=== PATIENT | male | born 1955 | race Caucasian/White ===

== ENCOUNTER → 2020-08-03 12:13 | Outpatient (ROUT) | payer MEDICARE, OTHER, SELFPAY ==
[2020-08-03 12:20] LABS: Hematocrit 30.3 % (41-53); Hemoglobin 10.2 g/dL (13.5-17.5); Mean Corpuscular HGB Conc 33.8 % (30-36); Mean Corpuscular Hemoglobin 31.1 PG (26-34); Platelet Count 246 X10^3/uL (150-400); Red Blood Cell Count 3.29 X10^6/uL (4.5-5.9); Red Cell Distribution Width 15.2 % (11.6-14.8); White Blood Cell Count 9.3 X10^3/uL (4.5-11.0)
[2020-08-03 12:29] LABS: Add Manual Diff / Slide Review YES
[2020-08-03 12:55] LABS: Alanine Aminotransferase 30 IU/L (<50); Albumin 3.8 g/dL (3.5-5.0); Albumin Globulin Ratio 1.1 (1.0-2.8); Alkaline Phosphatase 98 U/L (38-126); Aspartate Aminotransferase 23 IU/L (17-59); BUN Creatinine Ratio 41.1 (6-22); Bilirubin Total 0.3 mg/dL (0.2-1.3); Blood Urea Nitrogen 51 mg/dL (9-20); Calcium 9.9 mg/dL (8.4-10.2); Carbon Dioxide 28 mmol/L (22-32); Chloride 100 mmol/L (98-107); Estimated Glomerular Filt Rate 58.3 mL/min (>60); Globulin 3.5 g/dL (1.7-4.1); Glucose 91 mg/dL (80-110); HEMOLYSIS < 15 (0-50); Magnesium 1.8 mg/dL (1.6-2.3); Phosphorous 4.9 mg/dL (2.3-3.7); Sodium 137 mmol/L (137-145); Total Protein 7.3 g/dL (6.3-8.2)
[2020-08-03 12:57] LABS: Neutrophils Absolute Manual 6696 /uL (3000-5900); RBC Morphology Normal Morphology; Total Cells Counted 100
== END ==
PROVIDERS: Visit Provider Surgery
DX: K55.019 Acute (reversible) ischemia of small intestine, extent unspecified (principal)
CPT/HCPCS: 80053; 83735; 84100; 85025

== ENCOUNTER → 2020-12-02 11:58 | Outpatient (ROUT) | payer MEDICARE, OTHER, SELFPAY ==
[2020-12-02 12:10] LABS: Add Manual Diff / Slide Review NO; Basophils Absolute Auto 0 /uL (0-100); Basophils Percent Auto 0.6 % (0-2); Eosinophils Absolute Auto 200 /uL (0-450); Eosinophils Percent Auto 3.1 % (2-4); Hematocrit 34.6 % (41-53); Hemoglobin 11.3 g/dL (13.5-17.5); Lymphocytes Absolute Auto 1500 /uL (1100-4500); Lymphocytes Percent Auto 25.4 % (25-40); Mean Corpuscular HGB Conc 32.8 % (30-36); Mean Corpuscular Hemoglobin 28.4 PG (26-34); Mean Corpuscular Volume 86.7 fL (80-100); Monocytes Absolute Auto 700 /uL (0-900); Monocytes Percent Auto 11.3 % (3-14); Neutrophils Absolute Auto 3500 /uL (1500-7000); Neutrophils Percent Auto 59.6 % (50-75); Platelet Count 261 X10^3/uL (150-400); Red Blood Cell Count 3.99 X10^6/uL (4.5-5.9); Red Cell Distribution Width 14.8 % (11.6-14.8); White Blood Cell Count 5.9 X10^3/uL (4.5-11.0)
[2020-12-02 12:30] LABS: Alanine Aminotransferase 18 IU/L (<50); Albumin 3.2 g/dL (3.5-5.0); Albumin Globulin Ratio 1.2 (1.0-2.8); Alkaline Phosphatase 101 U/L (38-126); Aspartate Aminotransferase 21 IU/L (17-59); BUN Creatinine Ratio 40.8 (6-22); Bilirubin Total 0.3 mg/dL (0.2-1.3); Blood Urea Nitrogen 42 mg/dL (9-20); C-Reactive Protein Quant 1.1 mg/dL (<1.0); Calcium 8.9 mg/dL (8.4-10.2); Carbon Dioxide 28 mmol/L (22-32); Chloride 104 mmol/L (98-107); Estimated Glomerular Filt Rate > 60.0 mL/min (>60); Globulin 2.6 g/dL (1.7-4.1); Glucose 114 mg/dL (80-110); HEMOLYSIS < 15 (0-50); Magnesium 1.8 mg/dL (1.6-2.3); Phosphorous 3.6 mg/dL (2.3-3.7); Potassium 4.3 mmol/L (3.4-5.1); Sodium 136 mmol/L (137-145); Total Protein 5.8 g/dL (6.3-8.2); Triglycerides 99 mg/dL (35-150)
[2020-12-02 12:35] LABS: Prealbumin 17.9 mg/dL (17.6-36.0)
== END ==
PROVIDERS: Visit Provider Surgery
DX: K63.2 Fistula of intestine (principal); K55.019 Acute (reversible) ischemia of small intestine, extent unspecified
CPT/HCPCS: 80053; 83735; 84100; 84134; 84478; 85025; 86140

== ENCOUNTER → 2021-02-12 10:03 | Outpatient (CLI) | payer MEDICARE, OTHER, SELFPAY ==
--- NOTE | 2021-02-12 10:07 | DI.RAD.S_ITS ---
PROCEDURE: FL UPPER GI SMALL BOWEL INDICATIONS: FISTULA OF INTESTINE COMPARISON: None. FINDINGS: KUB: Preprocedural picture engraver film shows a normal bowel gas pattern. No suspicious abdominal calcifications. Visualized solid organ contours appear normal in size. No suspicious bony abnormalities. Esophagus: Air-contrast views demonstrate a normal mucosal pattern. On single-contrast views, there is normal peristalsis. No fixed strictures, extrinsic mass effects, or diverticula. No hiatal hernias or elicited gastroesophageal reflux. There is normal transit of a calibrated barium tablet through the esophagus. Stomach: The gastric lumen is normally distensible, and has normal rugal fold thickness. No mucosal masses or ulcers. The pylorus and duodenal bulb have a normal morphology. Small bowel: Duodenal folds appear normal in thickness. There is rapid transit time of barium through the small intestine possibly related to shortened length small bowel following surgical resection. Markedly dilated loops of small bowel noted in left abdomen with loops of small bowel measuring up to 10.6 centimeters. There is transition zone to normal caliber small bowel in the lower pelvis. The transition point is not directly visualized due to multiple superimposed dilated loops of small bowel, however the transition zone is approximately in the lower left paramedian pelvis. No intraluminal masses, or extrinsic mass effects. The terminal ileum is not identified and may be surgically absent. Reported enterocutaneous fistula is not definitely visualized. IMPRESSION: 1. Small bowel obstruction with loops of small bowel dilated up to 10.6 centimeters. Transit of contrast material from small bowel into the colon indicating partial obstruction. 2. Rapid transit of contrast material through small bowel possibly related to surgically shortened small-bowel length. 3. Transition zone to normal small bowel caliber localizes to the inferior left paramedian pelvis. Dictated by: Kiya Stevens MD, PhD on 02/12/2021 at 14:11 Approved by: Kiya Stevens MD, PhD on 02/12/2021 at 14:17
== END ==
PROVIDERS: Referring Provider Surgery; Visit Provider Surgery
DX: K63.2 Fistula of intestine (principal)
CPT/HCPCS: 74240; 74248

== ENCOUNTER → 2021-06-05 09:22 | Outpatient (CLI) | payer MEDICARE, OTHER, SELFPAY ==
[2021-06-05 12:29] LABS: COVID19 - ADMIT (NP swab/PCR) Negative (Negative)
== END ==
PROVIDERS: Visit Provider Physician Assistant
DX: Z01.812 Encounter for preprocedural laboratory examination (principal); Z20.822 Contact with and (suspected) exposure to COVID-19
CPT/HCPCS: C9803; U0003

== ENCOUNTER → 2021-07-07 11:40 | Outpatient (CLI) | payer MEDICARE, OTHER, SELFPAY ==
[2021-07-07 14:20] LABS: COVID-19 CEPHEID PCR (VTM/NP) Negative (Negative)
== END ==
PROVIDERS: Visit Provider Nurse Practitioner
DX: Z20.822 Contact with and (suspected) exposure to COVID-19 (principal)
CPT/HCPCS: C9803; U0003

== ENCOUNTER → 2022-02-21 10:01 | Outpatient (CLI) | payer MEDICARE, OTHER, SELFPAY ==
[2022-02-21 12:32] LABS: COVID-19 CEPHEID PCR (VTM/NP) Negative (Negative)
== END ==
PROVIDERS: Visit Provider Family Medicine Sleep Medicine
DX: Z20.822 Contact with and (suspected) exposure to COVID-19 (principal)
CPT/HCPCS: C9803; U0003; U0005

== ENCOUNTER → 2022-03-14 10:14 | Outpatient (CLI) | payer MEDICARE, OTHER, SELFPAY ==
[2022-03-14 13:55] LABS: COVID-19 CEPHEID PCR (VTM/NP) Negative (Negative)
== END ==
PROVIDERS: Visit Provider Family Medicine Sleep Medicine
DX: Z20.822 Contact with and (suspected) exposure to COVID-19 (principal)
CPT/HCPCS: C9803; U0003; U0005

== ENCOUNTER 2022-08-25 17:53 | Observation (INO) | payer MEDICARE, OTHER, SELFPAY ==
[2022-08-25 19:21] VITALS: BMI 22.1
[2022-08-25] MEDS: MORPHINE 10 MG/0.5 ML ORAL SYRINGE PO ×3 (20:41→23:44)
--- NOTE | 2022-08-25 20:53 | PM.HP.1 ---
History of Present Illness History of Present Illness Date Patient Seen: 08/25/22 Time Patient Seen: 20:53 Chief complaint: Adenocarcinoma of the liver, comfort care admit Narrative: Guevara Bertrand is a 67 y.o. unfortunate male with complicated intra-abdominal surgery history and a recent diagnosis of adenocarcinoma of the liver, likely lung primary, is transferred to this facility after a recent discharge from [facility] on MondayAugust 23. His who is admitted at this facility for a hip fracture was discussing his care with of family friend and RN who went over to see him at his house. She found that he was having a lot of difficulty breathing and recommended he ambulanced back to the hospital. Patient is unable to provide a history and his does not appear to have much of detailed history on his health issues. History is gleaned from notes that were provided from [facility]. Patient was accepted for direct admission during the day shift, however he did not arrive until after the shift change. Initial admission orders were placed putting him on comfort measures only. He was discharged from [facility] this past Monday and it appears that he underwent a biopsy of the liver however the results had not been returned. He was suspected to have a moderately differentiated adenocarcinoma with no detail on the primary but however lung primary was suspected. It is believed that his increasing dyspnea is being caused by a grossly enlarged liver likely displacing his lung function. Patient is 74 kg with a BMI of 22.1. Labs provided by the [facility] include a white count of 10.9, RBC 3.9 hemoglobin 11.4 hematocrit 34.5 platelet count of 422 INR is 2.0 and PT is 22 sodium 134 potassium 5.7 chloride 105 bicarb 11 anion gap is 18 BUN 87 creatinine 5.4 with the EGFR of 11 glucose 111 calcium 8.9 total bilirubin 2.0 AST is 505 ALT 286 alk-phos 483 venous gas pH is 7.1 VBG pCO2 is 35.9 VBG PO2 38.6 VBG bicarb 13.5 VBG total CO2 is 14.6 COVID-19 PCR is negative. Patient History Medical History (Updated 08/25/22 @ 20:59 by VIN Salinas) BPH (benign prostatic hyperplasia) Essential hypertension Surgical History (Updated 08/25/22 @ 21:00 by VIN Salinas) History of bowel resection History of tonsillectomy and adenoidectomy Family & Social History Family history unavailable: Yes (unable to obtain from the patient.) Social History: household members spouse Prior Living Arrangements House Safety & Behavioral: Feels Safe in Current Yes Environment Been Physically Hurt or No Threatened By a Person Meds Home Medications and Allergies Home Medications Medication Instructions Recorded Confirmed Type acetaminophen 325 mg tablet 650 mg PO Q4H PRN Pain (Scale 08/25/22 08/25/22 History (Tylenol) Score 4-6) doxazosin 4 mg tablet 4 mg PO DAILY 08/25/22 08/25/22 History oxycodone 5 mg tablet 5 mg PO Q4H PRN Pain (Scale Score 08/25/22 08/25/22 History 4-6) Allergies Allergy/AdvReac Type Severity Reaction Status Date / Time lorazepam AdvReac Intermediate Anxiety Verified 08/25/22 19:14 hydrochlorothiazide AdvReac Mild Verified 08/25/22 19:14 lisinopril AdvReac Mild Verified 08/25/22 19:13 Review of Systems Review of Systems ROS: Yes unobtainable due to mental status Exam Narrative Exam Narrative: Gen: Lethargic, cachectic and jaundiced appearing 67 y.o. male, appears uncomfortable HEENT: normocephalic, atraumatic, conjunctiva clear, sclera non-icteric, oral mucosa pink and moist Neck: supple, full ROM, no JVD, trachea is midline Resp: Lungs CTA, non-labored breathing CV: RRR, no murmur or rubs Abd: distended and hard, hypoactive BTs Skin: severely jaundiced, no lesions or rashes, dry and intact Neuro: Alert and oriented X 4 w/no focal deficits. Difficult to arouse Extremities: moves all 4 extremities, is ambulatory, negative Selena?s sign Psyche: depressed affect. Assessment & Plan Assessment & Plan narrative: Guevara Bertrand is admitted for inpatient comfort measures only. He is assigned to be in the same room with his by special range rinse with the nursing supervisor hairspring fabrication. It is anticipated that he will likely not survive for more than 1-2 days. Per the daytime provider his code status was changed to DNR/DNI. Review of [facility] notes indicated that he declined transfer to where he was normally receiving care. Adenocarcinoma of the liver with primary suspected to be lung, chronic End of life care order set initiated Patient apparently had a paradoxical reaction to Ativan Pain control with IV and or sublingual morphine Nausea and anxiety with IV Reglan and IV Zofran VTE Prophylaxis: Wells risk score 2.5 VT prophylaxis contraindicated in the setting of the patient being on comfort measures only Patient is admitted to the inpatient service due to the severity of disease, risks of further disease progression and this stay is expected to exceed 2 midnights. FEN: IV fluids: Saline lock, diet: General as tolerated, Consultants None, social Work will be consulted for hospice care in the case that the patient is able to be discharged home Dispo: Unknown at this time Code status: DNR/DNI, comfort measures only as discussed with the patient who identifies his presumed to be his surrogate and POA. [X] I have utilized all available immediate resources to obtain, update, or review of the patient's current medications VTE Deep Vein Thrombosis/Pulmonary Embolism Present on Admission: No MIPS - Admit I confirm the patient?s Advance Care Plan is present, Code status is documented, Surrogate decision maker is in patient?s record: Yes MIPS - DC The patient has current or prior documentation of left ventricular ejection fraction (LVEF) less than 40%, or moderate or severely depressed left ventricular systolic function.: No COVID-19 COVID-19 status: Negative Result date/Date tested (Pos, Neg/Pending): 08/25/22 Scores Wells' Criteria for PE Clinical signs and symptoms of DVT: No PE is #1 Dx or equally likely: No Heart rate > 100: No Immobilization at least 3 days or surg in previous 4 weeks: Yes History of PE or DVT: No Hemoptysis: No Malignancy w/Treatment within 6 months or palliative: Yes Wells' PE Score total: 2.5 Quality VTE Deep Vein Thrombosis/Pulmonary Embolism Present on Admission: No
[2022-08-25 21:37] VITALS: BP 96/39; PULSE 82; RESP 19; TEMP 35.4; O2SAT 92
--- NOTE | 2022-08-26 02:23 | PM.DDS.1 ---
Discharge Summary History of Illness Narrative: Guevara Bertrand is a 67 y.o. unfortunate male with complicated intra-abdominal surgery history and a recent diagnosis of adenocarcinoma of the liver, likely lung primary, is transferred to this facility after a recent discharge from [facility] on MondayAugust 23. His who is admitted at this facility for a hip fracture was discussing his care with of family friend and RN who went over to see him at his house. She found that he was having a lot of difficulty breathing and recommended he ambulanced back to the hospital. Patient is unable to provide a history and his does not appear to have much of detailed history on his health issues. History is gleaned from notes that were provided from [facility]. Patient was accepted for direct admission during the day shift, however he did not arrive until after the shift change. Initial admission orders were placed putting him on comfort measures only. He was discharged from [facility] this past Monday and it appears that he underwent a biopsy of the liver however the results had not been returned. He was suspected to have a moderately differentiated adenocarcinoma with no detail on the primary but however lung primary was suspected. It is believed that his increasing dyspnea is being caused by a grossly enlarged liver likely displacing his lung function. Patient is 74 kg with a BMI of 22.1. Labs provided by the [facility] include a white count of 10.9, RBC 3.9 hemoglobin 11.4 hematocrit 34.5 platelet count of 422 INR is 2.0 and PT is 22 sodium 134 potassium 5.7 chloride 105 bicarb 11 anion gap is 18 BUN 87 creatinine 5.4 with the EGFR of 11 glucose 111 calcium 8.9 total bilirubin 2.0 AST is 505 ALT 286 alk-phos 483 venous gas pH is 7.1 VBG pCO2 is 35.9 VBG PO2 38.6 VBG bicarb 13.5 VBG total CO2 is 14.6 COVID-19 PCR is negative. Hospital Course Date of Admission: 08/25/22 17:53 Consults: 08/25/22 20:52 Consult to Discharge Planning Routine Comment: Consult to Hospice Referral Urgent Comment: Discharge provider: VIN Salinas Hospital Course: Patient was admitted under comfort measures only. He appeared to have passed in his sleep. Patient was assigned to the same room as his who was present when he passed. Time of 2:15 a.m. on August 26, 2022. Pronouncement Note Date and Time of Date of : 08/26/22 Time of : 02:15 Contributing Factors (1) Metastatic adenocarcinoma to liver with unknown primary site: Additional Data Confirmation of : no pulse, no respirations, no heart sounds and pupils fixed and dilated Family: at bedside Attending/PCP notified?: Yes Attending physician: Javier Mendoza, DO Was code activated?: No Autopsy requested?: No claims examiner notified?: Yes Organ bank notified?: Yes Advance directives: Yes
--- NOTE | 2022-08-26 04:16 | PC.NURSE ---
Addendum entered by Frances Delarosa R.N. 08/26/22 05:05: home picked up patient at 04:38. Discharged w/ IV & [place] cath intact per Home preference. Original Note: Pt w/ no audible or palpable heartbeat and no visualized respirations at 02:15. Notified VIN Larkin and Brandie Salinas. Pt's roommate, Rachael Bertrand, notified. Name of home obtained and contacted.
== END 2022-08-26 04:38 | disposition expired ==
PROVIDERS: Admitting Provider Student in an Organized Health Care Education/Training Program; Referring Provider Student in an Organized Health Care Education/Training Program; Visit Provider Student in an Organized Health Care Education/Training Program
DX: C78.7 Secondary malignant neoplasm of liver and intrahepatic bile duct (principal); C80.1 Malignant (primary) neoplasm, unspecified; Z66 Do not resuscitate; Z51.5 Encounter for palliative care; E43 Unspecified severe protein-calorie malnutrition; N17.9 Acute kidney failure, unspecified
CPT/HCPCS: G0378; G0379